=== PATIENT | male | born 1975 | race African-American/Black ===

== ENCOUNTER 2019-05-08 10:27 | Emergency (ER) | payer MEDICAID ==
[~2019-05-08] VITALS: Ht 177.8 cm; Wt 75.0 kg
[2019-05-08] MEDS ORDERED: HALOPERIDOL LACTATE 5MG/ML VIAL IM STA (10:52)
[2019-05-08] MEDS ORDERED: LORAZEPAM 2MG/ML CPJ IM STA (10:52)
[2019-05-08 11:25] LABS: BASOPHILS % 0.7 % (0.0-2.0); CHLORIDE 103 mEq/L (98-107); EOSINOPHILS % 1.8 % (0.0-5.0); HEMATOCRIT. 41.4 % (42.0-52.0); HEMOGLOBIN. 13.6 g/dL (14.0-18.0); LYMPHOCYTES % 20.7 % (20.0-50.0); MEAN CORPUSCULAR HEMOGLOBIN 31.2 pg (28.0-32.0); MEAN PLATELET VOLUME 6.4 fl (7.4-10.4); MONOCYTES % 7.8 % (2.0-8.0); PLATELET 428 x1000/uL (130-400); RED BLOOD CELL COUNT 4.36 mill/uL (4.7-6.1); RED CELL DISTRIBUTION WIDTH 20.4 % (11.6-14.6)
[2019-05-08 11:53] LABS: ETHANOL BLOOD 252 mg/dL
[2019-05-08 12:49] LABS: CLARITY URINE CLEAR (CLEAR); COLOR URINE YELLOW (YELLOW); KETONES URINE TRACE (NEGATIVE); LEUKOCYTE ESTERASE URINE 2+ (NEGATIVE); NITRITE URINE NEGATIVE (NEGATIVE); OCCULT BLOOD URINE NEGATIVE (NEGATIVE); PH URINE 5.5 (4.5-8.0); PROTEIN URINE NEGATIVE (NEGATIVE); SPECIFIC GRAVITY URINE 1.007 (1.005-1.030)
[2019-05-08 14:12] LABS: *AMPHETAMINES SCREEN URINE PRESUMTIVE POSITIVE (NEGATIVE); *BARBITURATES SCREEN URINE NEGATIVE (NEGATIVE); *BENZODIAZEPINES SCREEN URINE NEGATIVE (NEGATIVE); *COCAINE SCREEN URINE PRESUMTIVE POSITIVE (NEGATIVE); METHADONE URINE SCREEN NEGATIVE (NEGATIVE); OPIATES URINE SCREEN NEGATIVE (NEGATIVE)
[2019-05-08 14:13] LABS: CANNABINOID URINE SCREEN PRESUMTIVE POSITIVE (NEGATIVE); PHENCYCLIDINE URINE SCREEN NEGATIVE (NEGATIVE)
[2019-05-08] MEDS ORDERED: SODIUM CHLORIDE 0.9% 1,000 ML IV ONE (14:14)
[2019-05-10] MEDS ORDERED: FAMOTIDINE 20MG/2ML VIAL IV ONE (03:15)
[2019-05-11 11:00] VITALS: BP 130/80
== END 2019-05-11 15:25 | disposition home or self-care (01) ==
LOC: ER 10:27
DX: F10.129 Alcohol abuse with intoxication, unspecified (principal); F15.10 Other stimulant abuse, uncomplicated; F11.10 Opioid abuse, uncomplicated; G82.20 Paraplegia, unspecified; K62.3 Rectal prolapse; Z99.3 Dependence on wheelchair; Y90.8 Blood alcohol level of 240 mg/100 ml or more; Z59.0 Homelessness; Z78.1 Physical restraint status; Z75.1 Person awaiting admission to adequate facility elsewhere
CPT/HCPCS: 36415; 70450; 80053; 80305; 80320; 81003; 85025; 96360; 96361; 96372; 99284; J1630; J2060; J7030; Z7610; G0480

== ENCOUNTER 2019-06-14 11:16 | Emergency (ER) | payer MEDICAID ==
[~2019-06-14] VITALS: Ht 172.7 cm; Wt 73.0 kg
[2019-06-15 02:37] VITALS: BP 118/71
== END 2019-06-15 02:38 | disposition home or self-care (01) ==
LOC: ER 11:16
DX: T83.038A Leakage of other urinary catheter, initial encounter (principal); F11.10 Opioid abuse, uncomplicated; F15.10 Other stimulant abuse, uncomplicated; G82.20 Paraplegia, unspecified; Y84.6 Urinary catheterization as the cause of abnormal reaction of the patient, or of later complication, without mention of misadventure at the time of the procedure; Y92.018 Other place in single-family (private) house as the place of occurrence of the external cause
CPT/HCPCS: 99284; A4315